=== PATIENT | female | born 1975 | race Caucasian/White ===

== ENCOUNTER → 2016-11-30 | Outpatient (CLI) | payer MEDICAID ==
[~2016-11-30] MED LIST: NICODERM C14 MG/24 H TD; NICOTINE PATCH;14 MG TD; PREMARIN 0.60.625 MG PO; PROTONIX 40MG T40 MG PO; ZOFRAN ODT4 MG PO
[2016-11-30 15:57] LABS: HEMOGLOBIN 13.1 g/dL (12.2-16.2); LYMPH % 26.9 % (10-50.0)
[2016-11-30 16:15] LABS: BUN 8 mg/dL (7-18)
[2016-11-30 16:17] LABS: GFR (ESTIMATED) 93 ML/MIN (59-)
[2016-12-02 09:39] LABS: HBsAg Screen Negative (Negative); Hep A Ab, IgM Negative (Negative); Hep B Core Ab, IgM Negative (Negative); Hep C Virus Ab <0.1 (0.0-0.9)
== END ==
LOC: LAB 15:14
PROVIDERS: Nurse Practitioner Family
DX: Z00.00 Encounter for general adult medical examination without abnormal findings (principal)

== ENCOUNTER → 2016-12-26 | Outpatient (CLI) | payer MEDICAID ==
[2016-12-26 14:49] LABS: HEMOGLOBIN 13.1 g/dL (12.2-16.2); LYMPH # 2.3 K/mm3 (0.7-4.5); LYMPH % 39.8 % (10-50.0)
[2016-12-26 15:02] LABS: URINE BILIRUBIN - DIPSTICK NEGATIVE (NEG); URINE BLOOD NEGATIVE (NEG)
[2016-12-26 15:18] LABS: URINE SQUAMOUS CELLS OCC #/hpf (0-5)
[2016-12-26 18:07] LABS: BUN 8 mg/dL (7-18)
[2016-12-26 18:15] LABS: GFR (ESTIMATED) 93 ML/MIN (59-)
== END ==
LOC: LAB 14:24
PROVIDERS: Obstetrics & Gynecology
DX: R87.810 Cervical high risk human papillomavirus (HPV) DNA test positive (principal); Z01.812 Encounter for preprocedural laboratory examination

== ENCOUNTER 2017-01-02 06:07 | Day surgery (SDC) | payer MEDICAID ==
[~2017-01-02] VITALS: Ht 172.7 cm; Wt 59.0 kg
--- NOTE | 2017-01-02 07:55 | Operative Note ---
Procedure/Operative Record Date of Procedure: 01/02/17 Referring physician: Dr. Ashley Pre-op diagnosis: Vaginal dysplasia Post-op diagnosis: Vaginal dysplasia Procedure performed: CO2 laser ablation of vaginal lesions Surgeon: Bridger Mandel Anesthesia: Gen., NADIA Solorio Indications: Vaginal dysplasia Description of procedure: After the patient was prepped and draped in the usual fashion and general anesthesia was administered, she was placed in Evens stirrups, and moist towels were placed around the vaginal area for protection from the laser. Oozing blackened instruments, a weighted speculum was placed within the posterior fourchette of the vagina. Lugol's solution was instilled into the vagina, and nonstaining areas were noted. Using the CO2 laser at 15 W of continuous power, all nonstaining areas were ablated. There was no blood loss. The sponge and needle counts correct. The patient tolerated the procedure well, was taken to PACU in excellent condition. She'll be discharged today, if her vital signs are stable. EBL (ml): 0 Complications: None Specimens: None at [id number]
--- NOTE | 2017-01-02 08:02 | Anesthesia Record ---
Anesthesia Record Part I Total IV fluids: 1400 EBL (ml): 0 Urine Output: 0 B/P: 149/93 % SaO2: 100 Pulse: 100 Resps: 12 Temp: 97.5 Patient is: Awake, Stable Stable to PACU at: 0800 at 0802
--- NOTE | 2017-01-02 08:03 | Anesthesia Record ---
Anesthesia Record Part II Discharge time: 829 Destination: Same day surgery PACU nurse assessment review? Yes Patient is: Awake, Stable Anesthesia complications? No at 0802
[2017-01-02 10:02] VITALS: BP 133/78
== END 2017-01-02 09:26 | disposition home or self-care (01) ==
LOC: SDC 06:07
PROVIDERS: Obstetrics & Gynecology
PROC: 0H5AXZD Destruction of Inguinal Skin, Multiple, External Approach (ICD-10-PCS; principal; 2017-01-02 07:30)
DX: N89.3 Dysplasia of vagina, unspecified (principal)
CPT/HCPCS: J2405